=== PATIENT | female | born 2000 | race Caucasian/White ===

== ENCOUNTER → 2020-05-24 13:16 | Outpatient (CLI) | payer OTHER, SELFPAY ==
[2016-09-30 14:06] VITALS: BMI 14.8
[2020-05-25 20:07] LABS: Chlamydia By Nucleic Acid AMP Negative (Negative)
[2020-05-26 13:08] LABS: Gonococcus By Nucleic Acid AMP Negative (Negative)
== END ==
PROVIDERS: PCP Family Medicine; Visit Provider Obstetrics & Gynecology
DX: Z11.3 Encounter for screening for infections with a predominantly sexual mode of transmission (principal)
CPT/HCPCS: 87491; 87591

== ENCOUNTER → 2020-12-14 13:23 | Outpatient (CLI) | payer OTHER, SELFPAY ==
[2020-12-16 14:18] LABS: HPV Reflexed? NOT INDICATED
[2020-12-17 05:07] LABS: Chlamydia By Nucleic Acid AMP Negative (Negative)
[2020-12-17 10:15] LABS: Gonococcus By Nucleic Acid AMP Negative (Negative)
== END ==
PROVIDERS: PCP Family Medicine; Visit Provider Obstetrics & Gynecology
DX: Z12.4 Encounter for screening for malignant neoplasm of cervix (principal); Z11.3 Encounter for screening for infections with a predominantly sexual mode of transmission
CPT/HCPCS: 87491; 87591; 88175; G0145

== ENCOUNTER 2021-05-13 15:17 | Outpatient (CLI) | payer OTHER, SELFPAY | END 2021-05-13 23:59 | disposition home or self-care (01) | LOC: LABSPEC 15:21 | PROVIDERS: PCP Family Medicine; Visit Provider Family Medicine | DX: Z20.822 Contact with and (suspected) exposure to COVID-19 (principal) | CPT/HCPCS: 87635; U0003; U0005 ==

== ENCOUNTER 2021-05-19 10:50 | Outpatient (CLI) | payer OTHER, SELFPAY ==
[2021-05-20 22:06] LABS: Chlamydia By Nucleic Acid AMP Negative (Negative)
[2021-05-20 22:44] LABS: Gonococcus By Nucleic Acid AMP Negative (Negative)
== END 2021-05-19 23:59 | disposition home or self-care (01) ==
LOC: LABSPEC 11:06
PROVIDERS: PCP Family Medicine; Visit Provider Obstetrics & Gynecology
DX: Z11.3 Encounter for screening for infections with a predominantly sexual mode of transmission (principal)
CPT/HCPCS: 87491; 87591

== ENCOUNTER 2021-07-29 16:28 | Emergency (ER) | payer OTHER, SELFPAY ==
[2021-07-29 16:30] VITALS: BP 123/92; PULSE 74; RESP 14; TEMP 36.9; O2SAT 98; BMI 29.2
--- NOTE | 2021-07-29 16:30 | CT_ITS ---
STUDY: CT BRAIN WITHOUT CONTRAST REASON FOR EXAM: Female, 21 years old. Fell on Sunday, hit back of head, LOC. RADIATION DOSAGE (If Supplied By Facility): CTDIvol = ( 44.99 ) mGy, DLP = ( 779.24 ) mGycm TECHNIQUE: Transaxial CT imaging of the brain was performed without administration of intravenous contrast material. Individualized dose optimization techniques were used for this CT. COMPARISON: No relevant priors. FINDINGS: Normal soft tissue structures. Normal calvarium. Normal size ventricles and extra-axial spaces for the patient''s age. Normal white matter tracts of the cerebral hemispheres. Normal basal ganglia and thalami. Normal brainstem. Normal cerebellum. Peter cisterna magna of the posterior fossa. There is no intracranial hemorrhage. There are no findings of an acute ischemic infarction. Normal visualized paranasal sinuses. CT/Brain/Head without Contrast IMPRESSION: No acute intracranial hemorrhage or mass effect. Electronically Signed: Aston Lemos MD ([place]) at 17:03 EDT ,
--- NOTE | 2021-07-29 17:29 | EDS_ITS ---
HPI History of Present Illness Chief Complaint: Head Injury Informant: patient Narrative Narrative: Patient presents with headache and a couple episodes of nausea and vomiting after head injury. Patient had a mechanical trip and fall on steps on Sunday evening. Her dog got in her way. She fell 5 or 6 steps. She hit the back of her head but had no loss of consciousness. She has had a diffuse headache since. Her sleep has been a little bit off. The next day she had an episode of nausea and vomiting and she had 1 today. Other times she cannot drink. No visual complaints. She sometimes feels as though her balance is just a little bit off but not con sistently. No numbness tingling or weakness. She did have a prior head injury quite some time ago playing volleyball but that fully resolved. No bleeding or surgery. She is not on any anticoagulation. She does take multivitamins but has not changed these. She has no other symptoms or injury. This does remind her of the concussion she had before. PFSH PFSH Home Medications Ibuprofen [Motrin] 800 mg PO TID PRN PRN #20 tab 04/09/15 [Rx Last Taken Unknown] hydrocodone-acetaminophen 1 - 2 tab PO Q4H PRN PRN #12 tablet 04/09/15 [Rx Last Taken Unknown] ondansetron 4 mg PO Q8H PRN #10 tab 07/29/21 [Rx Last Taken Unknown] Allergy/AdvReac Type Severity Reaction Status Date / Time amoxicillin [Amoxicillin] Allergy Rash Verified 07/29/21 16:29 Social History Smoking Status: Never smoker ROS [facility] ED Constitutional Constitutional ED: Denies fever(s) Eyes Eyes: Denies blurry vision or change in vision ENT ENT ED: Reports other Details: See history of present illness peer ; Denies ear pain or rhinorrhea Cardiovascular Cardiovascular: Denies chest pain Respiratory/Chest Respiratory/Chest: Denies dyspnea Gastrointestinal Gastrointestinal: Denies abdominal pain, nausea or vomiting Genitourinary Genitourinary ED: Denies dysuria Musculoskeletal Musculoskeletal: Denies arthralgias, back pain, myalgias or neck pain Integumentary Denies rash Neurologic Neurologic: Reports headache(s); Denies paresthesias or weakness Psychiatric Psychiatric: Reports depression; Denies anxiety Endocrine Endocrinology: Denies polyuria Hematologic/Lymphatic Hematologic/Lymphatic: Denies easy bleeding or easy bruising Allergic/Immunologic Allergic/Immunologic ED: Denies urticaria EXAM Physical Exam Const Vital Signs: 07/29/21 16:30 Temperature 98.4 F Temperature Source Temporal Pulse Rate 74 Respiratory Rate 14 Blood Pressure 123/92 H Blood Pressure Mean 102 Pulse Ox 98 Oxygen Delivery Method Room Air Positive well nourished and well developed General Appearance ED: well developed and NAD HEENT HEENT Narrative: Patient has no palpable or visible tenderness on the back of the scalp or other areas. atraumatic; Negative for trauma Eyes PERRL and EOMs intact bilaterally Neck full ROM General: Negative for tenderness Chest Wall inspection of chest normal Resp normal respiratory effort Cardio regular rhythm Rate: regular rate GI normal to inspection, nondistended, normoactive bowel sounds and non-tender Palpation: soft Back/Spine normal to inspection Extremity normal to inspection and full ROM General Extremety ED: Negative for tenderness Neuro oriented x3 and gait normal Sensorium / Orientation: alert Psych mental status grossly normal Skin no rashes or lesions noted MDM MDM MDM Narrative Medical decision making narrative: Patient CT shows no acute process. This is done approximately 40 or more hours after the injury. Patient likely has concussion. We did talk about typical symptoms pattern treatment reasons to return and expectations. She should decrease activity and screen time. We will write her off work tomorrow because she spends the whole day on the computer which is not good for this. I will write for some Zofran. She can use Tylenol or Motrin for headache if needed. Radiography Diagnostic Testing: Clinical Impression(s) from Imaging Studies Brain CT 07/29/21 16:30 IMPRESSION: No acute intracranial hemorrhage or mass effect. Electronically Signed: Aston Lemos MD ([place]) at 17:03 EDT Reading Location ID and State: [facility] / [place] , Service support , Discharge Plan Triage Chief Complaint: Head Injury ED Provider: Jorge Galeana Dx/Rx/DC Orders Clinical Impression: Accidental fall on or from stairs or steps, Closed head injury with concussion Instructions: ED Head Injury (Adult) Prescriptions: New ondansetron 4 mg tablet,disintegrating 4 mg PO Q8H PRN (Reason: nausea and vomiting) Qty: 10 RF: 0 No Action hydrocodone-acetaminophen 1 TABLET tablet 1 - 2 tab PO Q4H PRN PRN (Reason: Pain) Qty: 12 RF: 0 Ibuprofen [Motrin] 800 MG tablet 800 mg PO TID PRN PRN (Reason: Pain) Qty: 20 RF: 0 Stand Alone Forms: ED Work / School Excuse Primary Care Provider: Mason Lucio Referrals: Mason Lucio MD [Primary Care Provider] - 10-14 Days if not better Disposition Disposition: Home, Self Care
[2021-07-29 17:48] VITALS: BP 123/80; PULSE 80; RESP 18; O2SAT 100
== END 2021-07-29 17:48 | disposition home or self-care (01) ==
PROVIDERS: Emergency Provider Emergency Medicine; PCP Family Medicine; Visit Provider Emergency Medicine
DX: S06.0X0A Concussion without loss of consciousness, initial encounter (principal); Z79.899 Other long term (current) drug therapy; W10.9XXA Fall (on) (from) unspecified stairs and steps, initial encounter
CPT/HCPCS: 70450; 99283

== ENCOUNTER → 2021-10-06 | Outpatient (CLI) | payer OTHER, SELFPAY ==
--- NOTE | 2021-10-06 09:00 | RAD_ITS ---
STUDY: X-RAY - RIGHT FOOT CLINICAL: Female, 21 years old. FOOT INJURY TECHNIQUE: 3 view(s) of the foot. COMPARISON: None. FINDINGS: Normal talus, calcaneus, and tarsal bones. Normal visualized subtalar, talonavicular, calcaneocuboid, tarsal and tarsometatarsal articulations. Normal metatarsi. Normal metatarsophalangeal joint of the great toe. Normal tibial and fibular sesamoid bones. Normal interphalangeal joint of the great toe. Normal phalanges of the great toe. Normal second through fifth metatarsophalangeal joints. Normal interphalangeal joints and phalanges of the lesser toes. The soft tissue structures are unremarkable. RAD/Foot min 3 Views IMPRESSION: Normal x-ray examination of the foot. Electronically Signed: Lalito Driver MD at 14:50 EDT ,
== END | disposition home or self-care (01) ==
LOC: MTRAD 08:41
PROVIDERS: PCP Family Medicine; Referring Provider Family Medicine; Visit Provider Family Medicine
DX: S99.921A Unspecified injury of right foot, initial encounter (principal)
CPT/HCPCS: 73630

== ENCOUNTER → 2021-12-09 | Outpatient (CLI) | payer OTHER, SELFPAY ==
[2021-12-09 10:06] LABS: Absolute Lymphocyte Count 2.24 X10^3/uL (0.83-4.51); Absolute Neutrophil Count 5.3 X10^3/uL (2.0-7.7); Basophil# 0.02 X10^3/uL; Basophil% 0.2 % (0-1); Eosinophil# 0.07 X10^3/uL; Eosinophils% 0.8 % (0-5); Hematocrit 40.9 % (37-47); Hemoglobin 13.5 g/dL (12.0-15.0); Lymphocyte # 2.24 X10^3/ul (0.83-4.51); Lymphocyte % 26.9 % (19-41); Mean Corpuscular Hgb 29.7 pg (27.0-32.0); Mean Corpuscular Volume 90.1 fL (81-99); Mean Platelet Vol. 11.1 fl (6.2-12.0); Monocyte# 0.65 X10^3/uL; Monocyte% 7.8 % (0-10); NRBC Flagged by Analyzer 0 % (0-5); Neutrophil # 5.33 X10^3/uL (2.7-7.7); Neutrophil % 64.1 % (47-70); Platelet Count 277 K/mm3 (150-450); RBC Distribution Width CV 13.6 % (11.6-14.6); RBC Distribution Width SD 45.3 fl (35.1-43.9); Red Blood Count 4.54 M/mm3 (4.2-5.4); White Blood Count 8.3 K/mm3 (4.4-11.0)
[2021-12-09 10:17] LABS: Internal QC Validated? YES +Cl - CLEAR BKGD; Pregnancy, Serum, hCG Quali. NEGATIVE Negative
[2021-12-09 10:23] LABS: Hemoglobin A1c 5.2 % (3.8-5.6)
[2021-12-09 10:32] LABS: ALB/GLOB Ratio 0.9 RATIO (0.9-2.4); AST(SGOT) 15 U/L (15-37); Alanine Aminotransfer ALT/SGPT 18 U/L (13-56); Albumin, Serum 3.7 g/dL (3.2-5.0); Alkaline Phosphatase 56 U/L (45-117); Anion Gap 7 (5-15); BUN 8 mg/dL (7-18); BUN/Creat Ratio 9.5 RATIO (10-20); Calcium,Total 9.2 mg/dL (8.5-10.1); Chloride 108 mmol/L (98-107); Creatinine, Serum 0.84 mg/dL (0.55-1.02); EST Glomerular Filtration Rate 90 mL/min (>60); Est Glom Filt Rate - Afr Amer 109 mL/min (>60); Globulin 3.9 g/dL (2.2-4.2); Glucose 90 mg/dL (74-106); Potassium 3.8 mmol/L (3.5-5.1); Protein, Total 7.6 g/dL (6.4-8.2); Sodium Level 140 mmol/L (136-145); T4 Free Direct 0.86 ng/dL (0.76-1.46); Thyroid Stim Hormone (TSH) 1.26 uIU/mL (0.358-3.74)
[2021-12-09 11:55] LABS: Erythrocyte Sedimentation Rate 10 mm/hr (0-30); Other WBC Type 8.3 %
[2021-12-09 16:17] LABS: Vitamin B12 379 pg/mL (211-911); Vitamin D,25 Hydroxy 21.9 ng/mL
== END | disposition home or self-care (01) ==
LOC: MFPLAB 08:44
PROVIDERS: PCP Family Medicine; Referring Provider Family Medicine; Visit Provider Nurse Practitioner Family
DX: R53.83 Other fatigue (principal)
CPT/HCPCS: 36415; 80053; 82306; 82607; 83036; 84439; 84443; 84703; 85025; 85652

== ENCOUNTER → 2022-03-16 | Outpatient (CLI) | payer OTHER, SELFPAY | END | disposition home or self-care (01) | PROVIDERS: PCP Family Medicine; Visit Provider Obstetrics & Gynecology | DX: Z34.81 Encounter for supervision of other normal pregnancy, first trimester (principal) | CPT/HCPCS: 36415 ==

== ENCOUNTER 2022-03-23 17:55 | Emergency (ER) | payer OTHER, SELFPAY ==
[2022-03-23 17:57] VITALS: BP 142/97; PULSE 104; RESP 16; TEMP 36.9; O2SAT 98; BMI 24.9
--- NOTE | 2022-03-23 18:40 | EDS_ITS ---
HPI HPI - Female History of Present Illness Chief Complaint: Vag Bld, Preg Detail of Chief Complaint: Vaginal spotting in patient Informant: patient Pain Pain: Positive for Pelvic Pain Onset: Today and Hours Context: Sudden Onset Timing: Continuous and Waxes and wanes Quality: Positive for Cramping Location: Suprapubic Current Severity: Mild Maximum Severity: Severe Worsened by: Movement and [place] Relieved by: Remaining Still, NSAIDS and Tylenol Bleeding Issue: Positive for Vaginal bleeding; Negative for Passing clots or Passing tissue Onset: Hours (Has used 1 pad in the past 3 to 4 hours) Context: Sudden Onset Timing: Continuous Current Severity: Spotting Maximum pads/hr: 1 Associated Symptoms Associated Symptoms: Positive for Dysuria, Frequency, Urgency and Missed Period; Negative for Hematuria Last known menstrual period: 14 weeks gestation Test: Positive Sexually: Positive for Active Control: No control P: 0 Ab: 0 Narrative Narrative: Patient is a 21-year-old who presents with vaginal spotting that started several hours prior to presentation. This is her first . She is uncertain blood type. Review of records from [facility] indicates she has a positive blood. She does have history ovarian cyst. She denies history of salpingitis. She denies dysuria or hematuria. She does report frequency. She denies vomiting or diarrhea. She denies fever or chills. She states the cramping pain has eased up. Prior similar symptoms: No Recent Illness/Hospitalization: No [facility] Medical History (Updated 03/23/22 @ 21:[address] Jacob Benavides MD) Depression Medical History no medical history no medical history Home Medications [id number] 1 mg tablet 1 tab PO DAILY 03/23/22 [History Last Taken Unknown] Allergy/AdvReac Type Severity Reaction Status Date / Time amoxicillin [Amoxicillin] Allergy Rash Verified 07/29/21 16:29 Social History (Updated 03/23/22 @ 18:[address] Jacob Benavides MD) household members: family Smoking Status: Never smoker substance use type: does not use ROS ROS ED Constitutional Constitutional ED: Denies chills, fever(s), subjective or sweats Eyes Eyes: Denies blurry vision or change in vision ENT ENT ED: Denies ear pain, rhinorrhea or sore throat Cardiovascular Cardiovascular: Denies chest pain or palpitations Respiratory/Chest Respiratory/Chest: Denies cough or dyspnea Gastrointestinal Gastrointestinal: Denies abdominal pain, diarrhea, nausea or vomiting Genitourinary Genitourinary ED: Reports urinary frequency and other Details: Per HPI ; Denies dysuria or hematuria Musculoskeletal Musculoskeletal: Denies arthralgias, myalgias or neck pain Neurologic Neurologic: Denies headache(s) or paresthesias Hematologic/Lymphatic Hematologic/Lymphatic: Denies easy bleeding or easy bruising EXAM Physical Exam Const Vital Signs: 03/23/22 17:57 Temperature 98.5 F Temperature Source Temporal Pulse Rate 104 H Respiratory Rate 16 Blood Pressure 142/97 H Blood Pressure Mean 112 Pulse Ox 98 Oxygen Delivery Method Room Air Positive well nourished and well developed General Appearance ED: well developed and NAD; Negative for pallor HEENT Reports moist mucous membranes HEENT Narrative: Head is atraumatic no cephalic. Ears normal. Nares patent. Mucosa moist. Eyes PERRL and EOMs intact bilaterally General Eye ED: Negative for pale conjunctiva Neck no lymphadenopathy, supple and no JVD Resp normal respiratory effort and clear to auscultation bilaterally Cardio regular rate, regular rhythm, S1 normal heart sound, no murmurs and no JVD GI normal to inspection, nondistended, normoactive bowel sounds, soft to palpation and non-distended; Negative for non-tender Narrative: External genitalia normal. Vaginal mucosa is normal. Cervix is slightly inflamed. There is no active bleeding noted at this time. There is a small cyst noted. Patient complained of discomfort with palpation of the cervix. Uterus is approximately 14-15 weeks size. No adnexal mass or fullness noted. There is no adnexal tenderness noted either. Back/Spine no CVA tenderness Extremity normal to inspection and full ROM Neuro oriented x3, CN's II-XII intact bilaterally and no sensory deficits noted Sensorium / Orientation: alert Psych mental status grossly normal Skin no rashes or lesions noted and no wounds General Skin Exam: Negative for jaundice or pallor MDM MDM MDM Narrative Medical decision making narrative: Who will obtain heart tones and perform pelvic exam. H&H was obtained to assess for anemia. Serum was obtained which will be canceled since patient knows she is . Patient was tested for chlamydia and GC 2 days ago and results on her chart from the [facility] were negative. Lab Data Attestation: I reviewed the patient's lab results. Labs: Laboratory Results - last 24 hr 03/23/22 19:06 Hgb 12.6 Hct 36.4 L Procedures Other Procedures Procedure(s): Transabdominal ultrasound was performed by me. Fetus was noted. Spine was noted with no obvious abnormality. Extremities were noted. Head was noted with no abnormality. heart beat was noted and rate of 1 50-1 60. Patient was shown the ultrasound with the heartbeat and movement. Discharge Plan Triage Chief Complaint: Vag Bld, Preg ED Provider: Jacob Benavides Dx/Rx/DC Orders Clinical Impression: Vaginal bleeding during , Cervicitis Instructions: ED Possible Miscarriage ... Prescriptions: No Action 1 mg Tablet 1 tab PO DAILY Primary Care Provider: Care Physician,No Primary Referrals: Sheila Brumfield MD [Med Staff - Active Staff] - Keep Mehran appointment Care Physician,No Primary [Primary Care Provider] - Disposition Disposition: Home, Self Care
[2022-03-23 19:17] LABS: Hematocrit 36.4 % (37-47); Hemoglobin 12.6 g/dL (12.0-15.0)
[2022-03-23 21:10] VITALS: BP 136/88; PULSE 87; RESP 18; O2SAT 100
== END 2022-03-23 21:14 | disposition home or self-care (01) ==
PROVIDERS: Emergency Provider Emergency Medicine; Visit Provider Emergency Medicine
DX: O26.859 Spotting complicating pregnancy, unspecified trimester (principal); N93.9 Abnormal uterine and vaginal bleeding, unspecified; R10.2 Pelvic and perineal pain; O99.891 Other specified diseases and conditions complicating pregnancy; R35.0 Frequency of micturition; O23.519 Infections of cervix in pregnancy, unspecified trimester
CPT/HCPCS: 85014; 85018; 99282

== ENCOUNTER → 2022-06-23 | Outpatient (CLI) | payer OTHER, SELFPAY ==
[2022-06-23 14:51] LABS: Hematocrit 33.6 % (37-47); Hemoglobin 11.2 g/dL (12.0-15.0); Mean Corp Hgb Conc 33.3 g/dL (32-36); Mean Corpuscular Hgb 31.2 pg (27.0-32.0); Mean Corpuscular Volume 93.6 fL (81-99); Mean Platelet Vol. 10.3 fl (6.2-12.0); Platelet Count 339 K/mm3 (150-450); RBC Distribution Width CV 12.9 % (11.6-14.6); RBC Distribution Width SD 44.2 fl (35.1-43.9); Red Blood Count 3.59 M/mm3 (4.2-5.4); White Blood Count 16.8 K/mm3 (4.4-11.0)
[2022-06-23 15:05] LABS: Glucose Challenge Gest 1H 50g 140 mg/dL (70-140)
[2022-06-23 17:01] LABS: Syphilis Antibodies Non-reactive
== END | disposition home or self-care (01) ==
LOC: WOBLAB 13:25
PROVIDERS: Visit Provider Obstetrics & Gynecology
DX: Z34.82 Encounter for supervision of other normal pregnancy, second trimester (principal)
CPT/HCPCS: 36415; 82950; 85027; 86780

== ENCOUNTER 2022-08-02 09:14 | Outpatient (CLI) | payer OTHER, MEDICAID, SELFPAY ==
[2022-08-02 09:18] VITALS: BP 131/81; PULSE 107; TEMP 37.2; O2SAT 98; O2SAT 99
[2022-08-02 09:27] VITALS: BMI 31.6
[2022-08-02 10:53] VITALS: BP 133/77; PULSE 102
--- NOTE | 2022-08-02 14:13 | OB.TRI.NOTE ---
HPI - General General Date of Service: 08/02/22 HPI Narrative OSCAR STEWART, is a 22 F who presents with cramping PFSH PFS Medical History (Updated 08/02/22 @ 14:[address] Octaviano Morataya MD) Depression Home Medications [id number] 1 mg tablet 1 tab PO DAILY 03/23/22 [History Last Taken 08/02/22] Allergy/AdvReac Type Severity Reaction Status Date / Time amoxicillin [Amoxicillin] Allergy Rash Verified 07/29/21 16:29 Social History (Updated 03/23/22 @ 18:[address] Jacob Benavides MD) household members: family Smoking Status: Never smoker substance use type: does not use NST FHR Rate Baby A Baseline: 130 Variability:: Moderate Accelerations:: 15 x 15 Decelerations:: None NST Reactive:: Yes Uterine Activity:: Quiet Assessment & Plan (1) : PLAN: Patient with pelvic cramping. Called by nursing with report that patient overall comfortable in appearance, Cervical exam per nursing closed thick and high. heart tones reassuring toco quiet. Okay to discharge home
== END 2022-08-02 11:00 | disposition home or self-care (01) ==
LOC: WPOUT 09:16 → WP 09:17
PROVIDERS: Referring Provider Obstetrics & Gynecology; Visit Provider Obstetrics & Gynecology
DX: O99.891 Other specified diseases and conditions complicating pregnancy (principal); R10.9 Unspecified abdominal pain; Z3A.00 Weeks of gestation of pregnancy not specified
CPT/HCPCS: 59025; 59050; 99221; G0378

== ENCOUNTER 2022-08-04 10:25 | Outpatient (CLI) | payer OTHER, MEDICAID, SELFPAY ==
[2022-08-04 10:41] VITALS: BMI 31.1
[2022-08-04 10:50] VITALS: BP 120/74; PULSE 81; TEMP 36.9
[2022-08-04 10:58] VITALS: BP 127/72; PULSE 96
[2022-08-04 11:15] VITALS: BP 130/60; PULSE 88
[2022-08-04 11:29] VITALS: BP 116/56; PULSE 88
--- NOTE | 2022-08-06 09:00 | OB.TRI.PN_ITS ---
Progress Notes Date of Service: 08/04/22 Progress Note: Patient presents for triage evaluation secondary to headache FHT: 140 Moderate variability reactive no decelerations category I tracing Malone: no regular Contractions Assessment and plan: headache in , negative preeclampsia evaluation, Reactive NST, reassuring maternal and status patient discharged to home to follow-up as scheduled. See problem list details for additional plan information. Charges/Coding Procedures Urinary/Genital [id number]: [id number] non-stress test Interp
== END 2022-08-04 11:50 | disposition home or self-care (01) ==
LOC: WPOUT 10:35 → WP 10:36
PROVIDERS: Referring Provider Obstetrics & Gynecology; Visit Provider Obstetrics & Gynecology
DX: O99.891 Other specified diseases and conditions complicating pregnancy (principal); R51.9 Headache, unspecified
CPT/HCPCS: 59025; 59050

== ENCOUNTER → 2022-08-04 | Outpatient (CLI) | payer OTHER, SELFPAY ==
[2022-08-04 10:04] LABS: Absolute Lymphocyte Count 2.18 X10^3/uL (0.83-4.51); Absolute Neutrophil Count 10.9 X10^3/uL (2.0-7.7); Basophil# 0.01 X10^3/uL; Basophil% 0.1 % (0-1); Eosinophil# 0.08 X10^3/uL; Eosinophils% 0.6 % (0-5); Hematocrit 33.1 % (37-47); Hemoglobin 10.9 g/dL (12.0-15.0); Lymphocyte # 2.18 X10^3/ul (0.83-4.51); Lymphocyte % 15.7 % (19-41); Mean Corp Hgb Conc 32.9 g/dL (32-36); Mean Corpuscular Hgb 29.5 pg (27.0-32.0); Mean Corpuscular Volume 89.5 fL (81-99); Mean Platelet Vol. 11.1 fl (6.2-12.0); Monocyte# 0.68 X10^3/uL; Monocyte% 4.9 % (0-10); NRBC Flagged by Analyzer 0 % (0-5); Neutrophil # 10.86 X10^3/uL (2.7-7.7); Platelet Count 292 K/mm3 (150-450); RBC Distribution Width SD 39.2 fl (35.1-43.9); White Blood Count 13.9 K/mm3 (4.4-11.0)
[2022-08-04 10:12] LABS: Protein, Urine (Random) 22.7 mg/dL (<11.9); Protein:Creat Ratio 208 mg/g CRE (0-200)
[2022-08-04 10:56] LABS: ALB/GLOB Ratio 0.6 RATIO (0.9-2.4); AST(SGOT) 13 U/L (15-37); Alanine Aminotransfer ALT/SGPT 9 U/L (13-56); Albumin, Serum 2.5 g/dL (3.2-5.0); Alkaline Phosphatase 152 U/L (45-117); Anion Gap 7 (5-15); BUN 7 mg/dL (7-18); BUN/Creat Ratio 10.9 RATIO (10-20); Calcium,Total 8.9 mg/dL (8.5-10.1); Chloride 110 mmol/L (98-107); Creatinine, Serum 0.64 mg/dL (0.55-1.02); EST Glomerular Filtration Rate 122 mL/min (>60); Est Glom Filt Rate - Afr Amer 147 mL/min (>60); Globulin 4.3 g/dL (2.2-4.2); Glucose 79 mg/dL (74-106); LDH 158 U/L (84-246); Potassium 3.4 mmol/L (3.5-5.1); Protein, Total 6.8 g/dL (6.4-8.2); Sodium Level 139 mmol/L (136-145)
== END | disposition home or self-care (01) ==
LOC: WOBLAB 09:30
PROVIDERS: Visit Provider Nurse Practitioner Women's Health
DX: Z34.03 Encounter for supervision of normal first pregnancy, third trimester (principal)
CPT/HCPCS: 36415; 80053; 82570; 83615; 84156; 85025; 87086; 87088

== ENCOUNTER 2022-08-09 10:40 | Outpatient (CLI) | payer OTHER, MEDICAID, SELFPAY ==
[2022-08-09] VITALS (25 sets, daily range): BP systolic 102–131; BP diastolic 56–86; PULSE 76–113; RESP 15–16; TEMP 36.8–36.9; O2SAT 94–100; BMI 31.6
[2022-08-09] MEDS: Ondansetron ODT 4 MG Tablet PO (12:15)
[2022-08-09 12:17] LABS: Mucous, Urine 0 SEEN /hpf (<or=2+); Red Blood Cells-Urine 0 SEEN /hpf (0-5); White Blood Cells 0 SEEN /hpf (0-5)
[2022-08-09 12:26] LABS: Color, Urine Straw (Yellow); Glucose, Dipstick Normal (Normal); Hematocrit 30.6 % (37-47); Hemoglobin 10.1 g/dL (12.0-15.0); Ketone-Dipstick Negative (Negative); Leukocyte Esterase-Dipstick Negative /ul (Negative); Mean Corpuscular Hgb 29.3 pg (27.0-32.0); Mean Corpuscular Volume 88.7 fL (81-99); Mean Platelet Vol. 11.4 fl (6.2-12.0); Nitrite-Dipstick Negative (Negative); Occult Blood-Urine Negative /ul (Negative); Platelet Count 278 K/mm3 (150-450); Protein-Dipstick Negative (Negative); RBC Distribution Width CV 12.1 % (11.6-14.6); RBC Distribution Width SD 38.7 fl (35.1-43.9); Red Blood Count 3.45 M/mm3 (4.2-5.4); Specific Gravity, Urine 1.005 (1.002-1.030); Urine Bilirubin Dipstick Negative (Negative); Urine Clarity Sl. Cloudy (Clear); Urine Urobilinogen Normal (Normal); White Blood Count 13.7 K/mm3 (4.4-11.0)
[2022-08-09 12:31] LABS: Bacteria 1+ /hpf (None Seen); Squamous Epithelial Cells - UA 0-5 SEEN /hpf (5-10)
[2022-08-09 12:40] LABS: AST(SGOT) 14 U/L (15-37); Alanine Aminotransfer ALT/SGPT 9 U/L (13-56); Creatinine, Serum 0.47 mg/dL (0.55-1.02); EST Glomerular Filtration Rate 173 mL/min (>60); Est Glom Filt Rate - Afr Amer 209 mL/min (>60); Estimated Creatinine Clearance 153.99 ml/min; Uric Acid 4.1 mg/dL (2.6-6.0)
[2022-08-09 12:46] LABS: LDH 192 U/L (84-246)
[2022-08-09 12:47] LABS: Creatinine, Urine (random) < 13.00 mg/dL (NO RANGE EST.); Protein, Urine (Random) < 6.0 mg/dL (<11.9)
--- NOTE | 2022-08-09 14:04 | PCM.HP.BLA ---
History and Physical Date of Admission: 08/09/22 Chief complaint: Headache History present illness: 22-year-old G1, P0 at 33 weeks and 5 days with MATA 09/22/2022 arrives from office with elevated blood pressures in office and persistent headache with visual changes. Denies nausea, vomiting, chest pain, shortness of breath, right upper quadrant pain. Patient states good movement. is complicated by BMI 31 Obstetric history: G1: Current Past medical history: None Medications: vitamin, Fioricet Allergies: Amoxicillin Past surgical history: None Family history: Denies history DVT or PE Social history: Denies smoking, [place], drug use Review of systems: Besides above pertinent positives a full review of systems was performed and found to be negative Physical exam: Vitals: Blood pressure 131/71 pulse 101 General: Normal-appearing no acute distress HEENT: Normocephalic/atraumatic no cervical lymphadenopathy Cardiac/respiratory: No successor muscles, nonlabored breathing Abdomen: Soft, nontender, gravid Extremities: No peripheral edema normal peripheral pulses Psych: Normal affect and demeanor nonpressured speech Labs: White blood cell count 13.7 hemoglobin 10.1 hematocrit 30.6% platelets 278. Creatinine 0.47. AST 14 ALT 19. Urine protein creatinine ratio negative Assessment and plan: 22-year-old G1, P0 at 33 weeks and 5 days with elevated blood pressures in office and headache with visual changes unresolved with Fioricet. HELLP labs within normal limits, blood pressures here in triage overall normal. Discussed case with MFM, M suggests magnesium and Celestone to be given. Transport to [facility] for neurological evaluation. Educated patient on findings discussed while all other labs and at this time blood pressures within normal limits patient with persistent headache with visual changes with no obvious cause needs neurologic evaluation. Patient state understanding wish to proceed, all questions answered. To transport to [facility] now
[2022-08-09] MEDS: Lactated Ringers 1,000 ML 15 ML IV (14:20)
[2022-08-09] MEDS: Magnesium Sulfate 4gm/100mL 4 GM/100 ML IV.SOLN. IV (14:20)
[2022-08-09] MEDS: Betamethasone/Betamethasone 30 MG/5 ML Vial 12 MG IM (14:24)
[2022-08-09] MEDS: Magnesium Sulfate 4gm/100mL 2 GM/50 ML IV.SOLN. IV (14:32)
[2022-08-09] MEDS: Magnesium Sulfate 20 GM/500 ML BAG IV (14:48)
[2022-08-09] MEDS: proMETHazine 25 MG Tablet 12.5 MG PO (15:25)
== END 2022-08-09 15:20 | disposition home or self-care (01) ==
LOC: WPOUT 10:45 → WP 10:46
PROVIDERS: Referring Provider Obstetrics & Gynecology; Visit Provider Obstetrics & Gynecology
DX: O99.891 Other specified diseases and conditions complicating pregnancy (principal); R03.0 Elevated blood-pressure reading, without diagnosis of hypertension; Z3A.33 33 weeks gestation of pregnancy
CPT/HCPCS: 96365; 36415; 59025; 59050; 81001; 82247; 82565; 82570; 83615; 84156; 84450; 84460; 84550; 85027; 96372; 99221; J7120; G0378; J0702